=== PATIENT | female | born 1955 | race Caucasian/White ===

== ENCOUNTER 2024-04-03 23:06 | Emergency (ER) | payer MEDICARE, BC ==
[~2024-04-03] VITALS: Ht 162.6 cm; Wt 54.4 kg
[~2024-04-03 23:06] MED LIST: CARI350T PO; CELE200C PO; HYDR-507 PO
[2024-04-03] MEDS: IPRATROPIUM BROMIDE 0.5 MG/2.5 ML NEBU NEB ONE (23:45)
[2024-04-03 23:50] VITALS: O2SAT 91
[2024-04-03] MEDS ORDERED: ALBUTEROL SULFATE 2.5 MG/3 ML NEBU ONE ×2 (23:50→23:53)
[2024-04-03] MEDS ORDERED: IPRATROPIUM BROMIDE 0.5 MG/2.5 ML NEBU ONE (23:50)
[2024-04-04] MEDS: IV NORMAL SALINE 500 ML BAG IV ONE (00:05)
[2024-04-04] MEDS ORDERED: BUDESONIDE 0.5 MG/2 ML NEBU ONE (00:12)
[2024-04-04 00:15] VITALS: O2SAT 97
[2024-04-04 00:23] LABS: CALCIUM 8.8 mg/dL (8.5-10.1); CREATININE 0.7 mg/dL (0.6-1.3); POTASSIUM 4.1 mmol/L (3.5-5.1)
[2024-04-04 00:24] LABS: WHITE BLOOD COUNT (AUTO) 5.8 K/uL (3.8-11.8)
[2024-04-04 00:26] LABS: BASOPHILS % (AUTO) 0.6 % (0.0-2.0); EOSINOPHILS # (AUTO) 0.9 K/uL (0.0-0.7); HEMATOCRIT 36.8 % (31.2-41.9); HEMOGLOBIN 12.7 g/dL (10.9-14.3); LYMPHOCYTES # (AUTO) 0.7 K/uL (0.8-4.8); LYMPHOCYTES % (AUTO) 12.9 % (20.5-51.5); MEAN CORPUSCULAR HEMOGLOBIN 32.1 uug (24.7-32.8); MEAN CORPUSCULAR HGB CONC 35 g/dL (32.3-35.6); MEAN CORPUSCULAR VOLUME 92.9 fL (75.5-95.3); MONOCYTES # (AUTO) 0.6 K/uL (0.1-1.30); NEUTROPHILS # (AUTO) 3.5 K/uL (1.8-8.9); NEUTROPHILS % (AUTO) 61.5 % (38.5-71.5); PLATELET COUNT (AUTO) 208 K/uL (179-408); RED BLOOD CELL COUNT(AUTO) 3.95 MIL/uL (3.63-4.92); RED CELL DISTRIBUTION WIDTH 13.3 % (12.3-17.7)
[2024-04-04 00:27] LABS: DIFFERENTIAL COMMENT 1
[2024-04-04] MEDS ORDERED: methylPREDNISolone SOD SUCC 125 MG/2 ML VIAL ONE (00:34)
[2024-04-04 00:35] LABS: ALBUMIN 3.1 g/dL (3.4-5.0); BILIRUBIN,DIRECT 0.1 mg/dL (0.0-0.2); BILIRUBIN,TOTAL 0.4 mg/dL (0.2-1.0); TOTAL PROTEIN, SERUM 7.3 g/dL (6.4-8.2)
[2024-04-04] MEDS: methylPREDNISolone SOD SUCC 125 MG/2 ML VIAL IV ONE (00:37)
[2024-04-04 00:54] LABS: ABG BASE EXCESS -1.1 mmol/L (-2.0-2.0); ABG HCO3 23.2 mmol/L (22.0-26.0); ABG PCO2 37.5 mmHg (35.0-48.0); ABG PO2 57.1 mmHg (75.0-100.0); ABG SITE RIGHT BRACHIAL; ABG TOTAL HEMOGLOBIN 12.5 G/dL (12.0-16.0); AaDO2 90.1 mmHg; COHb 0.3 % (0.0-3.9); MetHb 0.1 % (0.0-1.5); O2Hb 89.4 % (94.0-97.0)
[2024-04-04] MEDS ORDERED: levoFLOXacin 750 MG TABLET ONE (01:13)
[2024-04-04] MEDS: levoFLOXacin 750 MG TABLET PO ONE (01:16)
[2024-04-04] MEDS ORDERED: HYDROCODONE BIT/HOMATROPINE 5 ML UDC ONE (01:25)
[2024-04-04] MEDS: ALBUTEROL SULFATE 2.5 MG/3 ML NEBU NEB ONE ×2 (01:26→01:32)
[2024-04-04] MEDS: HYDROCODONE BIT/HOMATROPINE 5 ML UDC PO ONE (01:27)
[2024-04-04] MEDS ORDERED: LEVO750T46 PO (01:27)
[2024-04-04] MEDS ORDERED: PRED20TA PO (01:27)
[2024-04-04] MEDS ORDERED: HYDR473S4 PO (01:27)
[2024-04-04] MEDS: BUDESONIDE 0.5 MG/2 ML NEBU NEB SCH (01:32)
[2024-04-04 01:49] VITALS: BP 117/63; O2SAT 95
== END 2024-04-04 01:49 | disposition home or self-care (01) ==
LOC: ER 23:10
DX: J45.901 Unspecified asthma with (acute) exacerbation (principal); Z98.890 Other specified postprocedural states; Z79.899 Other long term (current) drug therapy; Z60.2 Problems related to living alone; Z88.2 Allergy status to sulfonamides; Z88.1 Allergy status to other antibiotic agents
CPT/HCPCS: 99285; 71045; 80076; 80048; 83880; 85025; 36415; 93005; 96374; 94640 ×2; J2919; J7040; A4606; A4663; J3590